=== PATIENT | male | born 1950 | race Caucasian/White ===

== ENCOUNTER 2018-09-20 13:10 | Inpatient (IN) | payer OTHER ==
[~2018-09-20] VITALS: Ht 195.6 cm; Wt 106.1 kg
[2018-09-20 13:17] VITALS: BP 150/85
[2018-09-20 13:51] LABS: ABSOLUTE NEUTROPHILS 9.6 thou/uL (1.4-8.2); BASOPHILS 0.6 % (0.0-2.0); EOSINOPHILS 0.8 % (0.0-3.0); HEMATOCRIT 42.9 % (42.0-52.0); HEMOGLOBIN 14.3 gm/dL (14.0-18.0); LYMPHOCYTES 9.4 % (24.0-44.0); MCH 30.2 pg (26.0-34.0); MCHC 33.4 g/dL (28.0-37.0); MCV 90.4 fL (80.0-100.0); MONOCYTES 4.7 % (1.0-8.0); PLATELET COUNT 201 thou/uL (150-400); POLYS 84.5 % (36.0-66.0); RBC 4.74 mil/uL (4.50-6.00); RDW 13.4 % (10.5-14.5); WBC 11.4 thou/uL (4.0-11.0)
[2018-09-20 13:59] LABS: ANION GAP 10 mmol/L (7-16); BUN 17 mg/dL (7-18); CALCIUM 9.3 mg/dL (8.5-10.1); CHLORIDE 105 mmol/L (98-107); CO2 24 mmol/L (21-32); CREATININE 1.2 mg/dL (0.7-1.3); GLUCOSE 113 mg/dL (74-106); SODIUM 139 mmol/L (136-145)
[2018-09-20 14:10] LABS: ALBUMIN 3.7 g/dL (3.4-5.0); DIRECT BILIRUBIN 0.2 mg/dL (<0.1-0.3); LIPASE 162 U/L (73-393); SGOT 25 U/L (15-37); SGPT 23 U/L (30-65); TOTAL BILIRUBIN 0.7 mg/dL (<0.1-1.0); TOTAL PROTEIN 7.1 g/dL (6.4-8.2); TROPONIN-I <0.06 ng/mL (<0.06)
[2018-09-20] MEDS ORDERED: LISINOPRIL5 MG PO (14:43)
[2018-09-20] MEDS ORDERED: OMEPRAZOLE40 MG PO (14:44)
[2018-09-20] MEDS ORDERED: ASPIRIN81 M2 PO (14:44)
[2018-09-20] MEDS ORDERED: CENTRUM SILVER1 EAC4 PO (14:45)
[2018-09-20 15:19] VITALS: BP 150/86
[2018-09-20 15:21] VITALS: BP 150/86
--- NOTE | 2018-09-20 16:12 | NUR ---
LINE IS BUSY X 2; HAND OFF SENT
--- NOTE | 2018-09-20 16:14 | NUR ---
LINE IS BUSY 15852; UNABLE TO GIVEN REPORT AT THIS TIME
[2018-09-20 16:17] LABS: CHOLESTEROL 184 mg/dL (<200); HDL CHOLESTEROL 44 mg/dL (>40); LDL CHOLESTEROL 125 mg/dL (<100); TC:HDL 4.2 Ratio (Not establshd); TRIGLYCERIDE 79 mg/dL (<150); VLDL 16 mg/dL (<40)
[2018-09-20 17:25] VITALS: BP 144/85
[2018-09-20 19:35] VITALS: BP 119/61
--- NOTE | 2018-09-20 20:18 | NUR ---
Received pt from the ER, alert and oriented x 4, with a steady gait. Pt was able to walk from the bed to the toilet with no issues. No signs of distress was noted, no complaints of pain or discomfort was verbalized. Family at the bedside and spouse to stay the night. POC followed, pt monitored VS stable. Admission requirements completed.
[2018-09-20 23:26] VITALS: BP 110/70
--- NOTE | 2018-09-21 03:34 | NUR ---
ASSUMED PT CARE AROUND 1900. A&OX4. DENIES ANY PAIN OR SOA. VSS. AT BEDSIDE ALL NIGHT. NO MAJOR COMPLAINTS THIS SHIFT. UP AD EUNICE WITH STEADY GAIT. PT IS HOPING TO GO HOME LATER TODAY. PROGRESSING TOWARD POC GOALS. WILL CONTINUE TO MONITOR FURTHER.
[2018-09-21 04:00] VITALS: BP 127/66
[2018-09-21 05:34] LABS: HEMATOCRIT 40.9 % (42.0-52.0); HEMOGLOBIN 13.9 gm/dL (14.0-18.0); MCH 30.5 pg (26.0-34.0); MCHC 33.9 g/dL (28.0-37.0); MCV 90.2 fL (80.0-100.0); RBC 4.54 mil/uL (4.50-6.00); RDW 13.2 % (10.5-14.5); WBC 8.8 thou/uL (4.0-11.0)
[2018-09-21 06:01] LABS: ANION GAP 8 mmol/L (7-16); BUN 16 mg/dL (7-18); CHLORIDE 105 mmol/L (98-107); CO2 28 mmol/L (21-32); CREATININE 1.3 mg/dL (0.7-1.3); GLUCOSE 99 mg/dL (74-106); POTASSIUM 4.7 mmol/L (3.5-5.1); SODIUM 141 mmol/L (136-145); TROPONIN-I <0.06 ng/mL (<0.06)
[2018-09-21 06:12] LABS: CALCIUM 9.2 mg/dL (8.5-10.1)
[2018-09-21 07:39] VITALS: BP 119/71
--- NOTE | 2018-09-21 07:41 | EKG ---
[address] [place] [address] ELECTROCARDIOGRAM REPORT Name: KATYA LÓPEZ Room #: 356-P [facility].#: [id number] ������������������ Admission: 09/20/18 ������������������ Attend Phys: Natividad Castro MD Discharge: ������������������ Date of : 46 Report #: [id number] ����������������������������������������������������������������� [id number] THIS REPORT FOR: //name// [facility] ED Test Date: 2018-09-20 Test Time: 13:13:32 Pat Name: KATYA LÓPEZ Department: Room: 356 Gender: M Senior Linux Unix Engineer: KAREN : 1950 Requested By: Armond Alejandro Order Number: [id number] MD: Martell De La Rosa Measurements Intervals [place] Rate: 74 P: 54 CO: 199 QRS: 74 QRSD: 112 T: 43 QT: 411 QTc: 456 Interpretive Statements Sinus rhythm Nonspecific ST segment abnormality No previous ECG available for comparison Electronically Signed On 09-21-2018 7:41:04 CDT by Martell De La Rosa [email or web address] ��������������������������������������������� <ELECTRONICALLY SIGNED> ���������������������������������������� By: Martell De La Rosa MD, [facility] ��������������������������������������������� 09/21/18 0741 1313 1313 Martell De La Rosa MD, FACC /EPI
--- NOTE | 2018-09-21 12:04 | NUR ---
TOWARDS POC PT A/O X4, VSS, AFEBRILE, DENIES ANY PAIN. NO NV, NO SOA. PT SCHEDULED FOR NM STRESSTEST. WILL CONTINUE TO MONITOR.
--- NOTE | 2018-09-21 13:51 | 2DMMODE ---
[facility] [place] [employer] [place] [address] 2 D/M-MODE ECHOCARDIOGRAM Name: KATYA LÓPEZ Room #: 356-P [facility] IN ..#: [id number] ������������� Admission: 09/20/18 ������������� Attend Phys: Natividad Castro MD Discharge: ��� ������������� ��� Date of : 46 Date of Service: 09/21/18 1351 �� Report #: [id number] �������� ��������������������������������������������[id number] THIS REPORT FOR: //name// APPROVED REPORT Study performed: 09/21/2018 13:13:32 EXAM: Comprehensive 2D, Doppler, and color-flow Echocardiogram Patient Location: Echo lab Room #: 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 2D Dimensions RVDd: 45.47 mm IVSd: 9.54 (7-11mm) LVOT Diam: 23.93 (18-24mm) LVDd: 49.19 mm PWd: 9.75 (7-11mm) Ascending Ao: 31.61 (22-36mm) LVDs: 35.71 (25-40mm) Aortic Root: 31.36 mm Volumes Left Atrial Volume (Systole) Single Plane 4CH: 68.17 mL Single Plane 2CH: 88.95 mL LA ESV Index: 35.00 mL/m2 Aortic Valve AoV Peak Josesito.: 1.35 m/s AO Peak Gr.: 7.26 mmHg LVOT Max P.46 mmHg LVOT Max V: 1.06 m/s CURTIS Vmax: 3.52 cm2 Mitral Valve E/A Ratio: 1.2 MV Decel. Time: 206.02 ms [facility] [address] [place] [address] 2 D/M-MODE ECHOCARDIOGRAM Name: KATYA LÓPEZ Room #: 356-[facility] IN [facility]#: [id number] ������������� Admission: 09/20/18 ������������� Attend Phys: Natividad Castro MD Discharge: ��� ������������� ��� Date of : 46 Date of Service: 09/21/18 1351 �� Report #: [id number] �������� ��������������������������������������������[id number] MV E Max Josesito.: 0.72 m/s MV A Josesito.: 0.61 m/s MV PHT: 59.75 ms IVRT: 96.89 ms Pulmonary Valve PV Peak Josesito.: 1.40 m/s PV Peak Gr.: 7.84 mmHg Pulmonary Vein P Vein S: 0.55 m/s P Vein A: 0.25 m/s P Vein D: 0.68 m/s P Vein A Dur.: 110.7 msec P Vein S/D Ratio: 0.81 Tricuspid Valve TR Peak Josesito.: 2.47 m/s RAP Estimate: 5.00 mmHg TR Peak Gr.: 24.47 mmHg PA Pressure: 29.00 mmHg Left Ventricle The left ventricle is normal size. There is normal LV segmental wall motion. There is normal left ventricular wall thickness. Left ventricular systolic function is normal. LVEF is 55-60%. The left ventricular diastolic function is normal. Right Ventricle Right ventricle is at the upper limits of normal. The right ventricular systolic function is low normal. Atria Left atrium is mildly dilated. Right atrium is at the upper limits of normal. Aortic Valve The aortic valve is normal in structure. No aortic regurgitation is present. There is no aortic valvular stenosis. Mitral Valve The mitral valve is normal in structure. Mild to moderate mitral regurgitation. Tricuspid Valve The tricuspid valve is normal in structure. Mild tricuspid regurgitation. Estimated PAP is 30mmHg. Pulmonic Valve The pulmonary valve is normal in structure. Trace pulmonic [address] [address] 2 D/M-MODE ECHOCARDIOGRAM Name: KATYA LÓPEZ Room #: 356-P [facility] IN .R.#: [id number] ������������� Admission: 09/20/18 ������������� Attend Phys: Natividad Castro MD Discharge: ��� ������������� ��� Date of : 46 Date of Service: 09/21/18 1351 �� Report #: [id number] �������� ��������������������������������������������[id number] regurgitation. Great Vessels The aortic root is normal in size. The ascending aorta is normal in size. IVC is normal in size and collapses >50% with inspiration. Pericardium There is no pericardial effusion. <Conclusion> The left ventricle is normal size. There is normal left ventricular wall thickness. Left ventricular systolic function is normal. The left ventricular diastolic function is normal. Right ventricle is at the upper limits of normal. Left atrium is mildly dilated. Right atrium is at the upper limits of normal. The aortic valve is normal in structure. Mild to moderate mitral regurgitation. Mild tricuspid regurgitation. Estimated PAP is 30mmHg. ��������������������������������������������� <ELECTRONICALLY SIGNED> ���������������������������������������� By: Cruz Story MD ��������������������������������������������� 09/21/18 1351 1351 1351 Cruz Story MD /INF
[2018-09-21 15:26] VITALS: BP 136/84
[2018-09-21 19:39] VITALS: BP 138/78
[2018-09-22] VITALS (8 sets, daily range): BP systolic 94–141; BP diastolic 63–95
[2018-09-22 05:40] LABS: HEMATOCRIT 41.5 % (42.0-52.0); HEMOGLOBIN 14.1 gm/dL (14.0-18.0); MCH 30.8 pg (26.0-34.0); MCHC 34.1 g/dL (28.0-37.0); MCV 90.3 fL (80.0-100.0); RBC 4.59 mil/uL (4.50-6.00); RDW 13.2 % (10.5-14.5); WBC 8.1 thou/uL (4.0-11.0)
[2018-09-22 05:48] LABS: CREATININE 1.3 mg/dL (0.7-1.3); POTASSIUM 4.1 mmol/L (3.5-5.1)
--- NOTE | 2018-09-22 06:10 | NUR ---
PATIENT IS PROGRESSING IN HIS CARE PLAN. VITAL SIGNS STABLE WITH PATIENT HAVING NO COMPLAINTS OF CHEST PAIN, NAUSEA OR ANY OTHER TROUBLING SYMPTOMS OF CARDIAC DISTRESS. FULLY ORIENTED, PATIENT HAS BEEN ABLE TO CALL APPROPRIATELY FOR NEEDS AND PARTICIPATE IN CARE PLAN. PATIENT KEPT ON STRICT NPO IN PREPARATION OF TODAYS PROCEDURE. UP AD EUNICE THROUGHOUT SHIFT WITH PATIENT BALANCED AND STRONG WHEN AMBULATING. CONTINUE PLAN OF CARE.
--- NOTE | 2018-09-22 07:31 | EKG ---
[address] [address] ELECTROCARDIOGRAM REPORT Name: KATYA LÓPEZ Room #: 356-P ADM IN M.R.#: [id number] ������������������ Admission: 09/21/18 ������������������ Attend Phys: Natividad Castro MD Discharge: ������������������ Date of : 46 Report #: [id number] ����������������������������������������������������������������� [id number] THIS REPORT FOR: //name// [facility] Test Date: 2018-09-21 Test Time: 08:46:12 Pat Name: KATYA LÓPEZ Department: Room: 356 P Gender: M Call Center Director: CAM : 1950 Requested By: Davida Estrada Order Number: [id number] MD: Martell De La Rosa Measurements Intervals [place] Rate: 68 P: 42 [place]: 197 QRS: 70 QRSD: 104 T: 30 QT: 419 QTc: 446 Interpretive Statements Sinus rhythm No significant abnormality Compared to ECG 09/20/2018 13:13:32 ST (T wave) deviation no longer present Electronically Signed On 09-22-2018 7:31:09 CDT by Martell De La Rosa [email or web address] ��������������������������������������������� <ELECTRONICALLY SIGNED> ���������������������������������������� By: Martell De La Rosa MD, [facility] ��������������������������������������������� 09/22/18 0731 5 5 Martell De La Rosa MD, [facility] /EPI
--- NOTE | 2018-09-22 09:10 | NUR ---
report received from sabino rn @ 3481, pt resting in bed w/ at bs. pt denies any concerns or compliants at this time. manager labor delivery x2 on unit @ 5014 to picking crew supervisor pt for procedure. tele sent w/ pt.
--- NOTE | 2018-09-22 11:07 | NUR ---
REPORT GIVEN TO PENNY OWEN AT THIS TIME.
--- NOTE | 2018-09-22 14:31 | NUR ---
INITIAL ASSESSMENT: SW reviewed chart and spoke with nursing and attending physician. Pt was transferred to [facility] from [facility]. Pt had cardiac cath this morning. Pt was transferred to CCU from 3W following cath. SW met with pt and at bedside. Introduced role of SW. Pt was sleeping during time of SW visit. Pt's states that prior to admission, pt was independent with ADLs. Pt is a retired quality assurance director. Pt's PCP is Dr. Jackson at the [facility] in [place], [place]. Pt's states pt should be ready for discharge home tomorrow pending cardiac clearance. No discharge needs identified at this time. Pt's states that pt's PCP office requests medical records to be faxed. . SW explained that DIAN form can be signed and taken to medical records. Or pt's PCP's office can call [facility] medical records to have info sent directly to them. SW is available to assist should needs arise.
--- NOTE | 2018-09-22 14:53 | NUR ---
ASSUMED CARE AT 1150, SHIFT ASSESMENT DONE, POST CATH, CAME TO THE UNIT AT 1150, HEMOSTATIS WAS OBTANIED AT 0905, BEDREST FOR 3 HOURS WAS DONE AT 1205. VSS, CATH SITE IS SOFT TO TOUCH, MYNX DRESSING CLEAN, DRY, INTACT. UP AD EUNICE. VSS. DENIES ANY PAIN, NAUSEA, VOMITING. NSR TO SINUS AB ON THE TELE. WILL CONTINUE TO ASSESS AND ASSIST WITH ADLs NEEDED.
--- NOTE | 2018-09-22 17:07 | CATHLAB ---
[facility] [place] [address] INVASIVE PROCEDURE REPORT Name: LÓPEZKATYA Addie Room #: 200-I ADM IN [facility].#: [id number] ������������� Admission: 09/21/18 ������������� Attend Phys: Natividad Castro MD Discharge: ��� ������������� ��� Date of : 46 Date of Service: 09/22/18 1706 �� Report #: [id number] �������� ��������������������������������������������[id number] THIS REPORT FOR: //name// APPROVED REPORT Study performed: 09/22/2018 08:14:53 Patient Details The patient is a 68 year-old male Event Personnel Cruz Story Choral Teacher, Gilmar Pizarro RN RN, Erin Carrizales ELECTRICIAN SOUND Scrub, Rachael Lindquist RTR, RENAN Monitor, Vandana Todd Monitor Procedures Performed AGUSTIN Place w/wo Plasty Single RCA [id number] Left Heart Cath Coronaries, Bypass Grafts [id number] LHCCORCA Indication Positive stress test, Chest pain Risk Factors Hypercholesterolemia, Coronary Artery DiseaseHypertension Procedure Narrative The Right Groin^ was infiltrated with 1% Lidocaine subcutaneous anesthesia. A PINNACLE 6FR Sheath #[id number] sheath was inserted into the RFA^. Coronary angiography was performed using coronary diagnostic catheters. The right coronary system was accessed and visualized with a JR4 catheter. The left coronary system was accessed and visualized with a JL4 catheter. The left ventricle was accessed and visualized with a PIGTAIL catheter. Pre-demployment femoral angiogram was performed RFA. Closure device was deployed with a Fr MYNXGRIP 6/7F #[id number]. The patient tolerated the procedure well and there were no complications associated with the procedure. There was no hematoma. Intraoperative Conscious Sedation Sedation start time: 815 Case end Time: 915 Fentanyl 100 mcg Versed 2 mg Fluoro Time: 15.70 minutes Dose: DAP 72449.00 cGycm2 3147 mGy [facility] [place] [address] INVASIVE PROCEDURE REPORT Name: KATYA LÓPEZ Room #: 200-I [facility] IN ..#: [id number] ������������� Admission: 09/21/18 ������������� Attend Phys: Natividad Castro MD Discharge: ��� ������������� ��� Date of : 46 Date of Service: 09/22/18 1706 �� Report #: [id number] �������� ��������������������������������������������[id number] Contrast Type and Amount: Omnipaque 110 ml [place] Artery Percent Stenosis Left Main: % Prox LAD: 100 % Mid/Distal LAD: % Circumflex: 100 % RCA: 100 % Ramus: % Diagnostic Cath LAD There is a patent FELDER graft with an end-to-side anastomosis to the mid LAD. Diagonal 1 There is a patent SVG with an end to side anastomosis to the first diagonal artery. OM1 There is a patent SVG with an end to side anastomosis to the first OM. Right Coronary There is a severe stenosis at the distal anastomotic site of the SVG to the distal RCA. This supplies blood to the PDA and multiple RPL branches. Left Ventriculography Left Ventriculography was not performed. Ejection Fraction was >55% based off patient's Nuclear Cardiac Stress Test. An LVEDP was measured and there is no gradient across the outflow tract. Hemodynamics The aortic pressure is 127/72 mmHg with a mean of mmHg. The left ventricular pressure is 133/12 mmHg with a mean of mmHg. The left ventricular end diastolic pressure is 20 mmHg. There was no gradient across the aortic valve upon pullback. PCI Technique Lesion Percutaneous coronary intervention was performed on the SVG to the distal right coronary artery. The lesion stenosis prior to intervention was 90% with RAYSA 3 flow. A IcanbesponsoredTA 6FR [place] 1 #[id number] Guide Catheter was used to engage the ostium. A Luge Wire .014 x 182CM #[id number] Interventional Guidewire was used to cross the lesion. BALLOON DILATION A Balloon catheter Euphora RX 2.25 x 10 #[id number] was inserted and inflated up to 6.00atm for 13seconds. Additional Inflation: 12.00atm for 23seconds. STENT DEPLOYMENT A stent RESOLUTE SUDARSHAN RX 2.5 X 12 #[id number] was inserted and inflated up to 14.00atm for 19seconds. Additional Inflation: 18.00atm for 12seconds. [address] [address] INVASIVE PROCEDURE REPORT Name: KATYA LÓPEZ Room #: 200-I [facility] IN ..#: [id number] ������������� Admission: 09/21/18 ������������� Attend Phys: Natividad Castro MD Discharge: ��� ������������� ��� Date of : 46 Date of Service: 09/22/18 1706 �� Report #: [id number] �������� ��������������������������������������������[id number] POST STENT DEPLOYMENT BALLOON DILATION A Balloon catheter [employer] NC RX 3.0 x 6 #[id number] was inserted and inflated up to 18.00atm for 14seconds. Additional Inflation: 20.00atm for 24seconds. Additional Inflation: 20.00atm for 18seconds. Final angiography reveals 5 % stenosis with RAYSA 3 flow. Conclusion 1. Successful insertion of a drug-eluting stent into the distal anastomotic site of the SVG to the distal RCA. 2. Patent FELDER to the LAD. 3. Patent SVG to first diagonal artery. 4. Patent SVG to the first OM vessel. 5. Recommend dual antiplatelet therapy and aggressive risk factor management. ��������������������������������������������� <ELECTRONICALLY SIGNED> ���������������������������������������� By: Cruz Story MD ��������������������������������������������� 09/22/181705 05 05 Cruz Story MD /INF
[2018-09-23 00:15] VITALS: BP 123/66
[2018-09-23 04:11] LABS: ALBUMIN 3.5 g/dL (3.4-5.0); CALCIUM 8.7 mg/dL (8.5-10.1); CREATININE 1.2 mg/dL (0.7-1.3); POTASSIUM 3.9 mmol/L (3.5-5.1); TOTAL BILIRUBIN 0.6 mg/dL (<0.1-1.0)
[2018-09-23 04:25] LABS: HEMATOCRIT 42.2 % (42.0-52.0); HEMOGLOBIN 14.4 gm/dL (14.0-18.0); MCH 30.5 pg (26.0-34.0); MCHC 34.1 g/dL (28.0-37.0); MCV 89.6 fL (80.0-100.0); RBC 4.71 mil/uL (4.50-6.00); RDW 13.1 % (10.5-14.5); WBC 9.5 thou/uL (4.0-11.0)
[2018-09-23 04:45] VITALS: BP 108/58
--- NOTE | 2018-09-23 06:37 | NUR ---
ASSESSMENTS CHARTED. PATIENT UP AT EUNICE IN ROOM. CATH YESTERDAY WITH STENT TO RCA. DOCTORS WANT AN EGD DONE, PATIENT IS HERE IN [place]ITING [place]. WANTS TO BE RELEASED TODAY AND RETURN TO [place]. HAS CONTACTED THE [facility] IN [place] AND SCHEDULED THE TEST AND FOLLOW-UP AT THE [facility].
--- NOTE | 2018-09-23 08:17 | EKG ---
[address] [place] [address] ELECTROCARDIOGRAM REPORT Name: KATYA LÓPEZ Room #: 200-I ADM IN M.R.#: [id number] ������������������ Admission: 09/21/18 ������������������ Attend Phys: Natividad Castro MD Discharge: ������������������ Date of : 46 Report #: [id number] ����������������������������������������������������������������� [id number] THIS REPORT FOR: //name// [facility] Test Date: 2018-09-22 Test Time: 09:52:47 Pat Name: KATYA LÓPEZ Department: Room: 200 Gender: Otolaryngologist: Devan WEBB : 1950 Requested By: Cruz Story Order Number: [id number] MD: Martell De La Rosa Measurements Intervals [place] Rate: 52 P: 40 [place]: 204 QRS: 67 QRSD: 106 T: 63 QT: 475 QTc: 442 Interpretive Statements Sinus rhythm No significant abnormality Compared to ECG 09/21/2018 08:46:12 No significant changes Electronically Signed On 09-23-2018 8:17:23 CDT by Martell De La Rosa [email or web address] ��������������������������������������������� <ELECTRONICALLY SIGNED> ���������������������������������������� By: Martell De La Rosa MD, [facility] ��������������������������������������������� 09/23/18 0817 0952 1 Martell De La Rosa MD, FACC /EPI
[2018-09-23 08:24] VITALS: BP 169/52
--- NOTE | 2018-09-23 08:32 | EKG ---
[address] [place] [address] ELECTROCARDIOGRAM REPORT Name: KATYA LÓPEZ Addie Room #: 200-I ADM IN M.R.#: [id number] ������������������ Admission: 09/21/18 ������������������ Attend Phys: Natividad Castro MD Discharge: ������������������ Date of : 46 Report #: [id number] ����������������������������������������������������������������� [id number] THIS REPORT FOR: //name// [facility] Test Date: 2018-09-23 Test Time: 07:52:08 Pat Name: KATYA LÓPEZ Department: Room: 200 I Gender: M Head Charger: TONNY : 1950 Requested By: Cruz Story Order Number: [id number] MD: Martell De La Rosa Measurements Intervals [place] Rate: 59 P: 49 [place]: 188 QRS: 70 QRSD: 110 T: 34 QT: 440 QTc: 436 Interpretive Statements Sinus bradycardia Compared to ECG 09/21/2018 08:46:12 No significant changes Electronically Signed On 09-23-2018 8:32:01 CDT by Martell De La Rosa [email or web address] ��������������������������������������������� <ELECTRONICALLY SIGNED> ���������������������������������������� By: Martell De La Rosa MD, [facility] ��������������������������������������������� 09/23/18 0832 0752 0752 Martell De La Rosa MD, FACC /EPI
[2018-09-23] MEDS ORDERED: EFFIENT10 MG PO (10:19)
[2018-09-23] MEDS ORDERED: LIPITOR40 MG PO (10:19)
[2018-09-23] MEDS ORDERED: PANTOPRAZOLE SO40 M1 PO (10:20)
[2018-09-23 10:25] VITALS: BP 169/52
--- NOTE | 2018-09-23 11:19 | NUR ---
ALERT AND ORIENTED AND HAS DENIED PAIN. VITALS STABLE. UP AD EUNICE, RIGHT GROIN SITE WITH DRESSING C/D/I. TOLERATING DIET WELL W/O NAUSEA. ORDERS TO DC RECEIVED. NEW PRESCRIPTIONS AND DC INSTRUCTIONS GIVEN TO PATIENT AND SPOUSE. PATIENT WILL DC HOME.
== END 2018-09-23 11:25 | disposition home or self-care (01) | DRG 246 ==
LOC: ER 13:10 → EROBS 15:06 → 3W 15:06 → 2N 09-21 13:20 → ENTRNSPT 09-23 11:17 → EDTRNSPTSTS 09-23 11:18 → 2N 09-23 11:25
PROVIDERS: Emergency Medicine; Internal Medicine Cardiovascular Disease; ADMIT Internal Medicine
PROC: B2131ZZ Fluoroscopy of Multiple Coronary Artery Bypass Grafts using Low Osmolar Contrast (ICD-10-PCS; principal; 2018-09-22)
PROC: B2181ZZ Fluoroscopy of Left Internal Mammary Bypass Graft using Low Osmolar Contrast (ICD-10-PCS; principal; 2018-09-22)
PROC: 4A023N7 Measurement of Cardiac Sampling and Pressure, Left Heart, Percutaneous Approach (ICD-10-PCS; principal; 2018-09-22)
PROC: B2111ZZ Fluoroscopy of Multiple Coronary Arteries using Low Osmolar Contrast (ICD-10-PCS; principal; 2018-09-22)
PROC: 027034Z Dilation of Coronary Artery, One Artery with Drug-eluting Intraluminal Device, Percutaneous Approach (ICD-10-PCS; principal; 2018-09-22)
PROC: B41F1ZZ Fluoroscopy of Right Lower Extremity Arteries using Low Osmolar Contrast (ICD-10-PCS; principal; 2018-09-22)
DX: I25.10 Atherosclerotic heart disease of native coronary artery without angina pectoris (principal); I50.33 Acute on chronic diastolic (congestive) heart failure; K44.9 Diaphragmatic hernia without obstruction or gangrene; R07.89 Other chest pain; E78.5 Hyperlipidemia, unspecified; K21.9 Gastro-esophageal reflux disease without esophagitis; I10 Essential (primary) hypertension; R13.10 Dysphagia, unspecified; Z96.659 Presence of unspecified artificial knee joint; I25.2 Old myocardial infarction; Z95.1 Presence of aortocoronary bypass graft; Z79.899 Other long term (current) drug therapy; Z79.82 Long term (current) use of aspirin; Z88.0 Allergy status to penicillin; Z90.49 Acquired absence of other specified parts of digestive tract; Z82.49 Family history of ischemic heart disease and other diseases of the circulatory system; Z80.9 Family history of malignant neoplasm, unspecified; Z87.891 Personal history of nicotine dependence
CPT/HCPCS: 10080; 10081; 10879